=== PATIENT | male | born 1955 | race African-American/Black ===

== ENCOUNTER 2021-04-17 07:13 | Emergency (ER) | payer OTHER ==
[2021-04-17 07:57] VITALS: BP 120/79
[2021-04-17] MEDS ORDERED: KETOROLAC 30 MG/1 ML INJ IM ONE (09:17)
[2021-04-17] MEDS ORDERED: ONDANSETRON 4 MG ODT TAB PO ONE (09:17)
--- NOTE | 2021-04-17 09:25 | Emergency Department Report ---
ED Back Pain/Injury HPI - General Chief Complaint: Back Pain/Injury Stated Complaint: BACKPAIN Time Seen by Provider: 04/17/21 08:40 Source: patient Limitations: No Limitations - History of Present Illness Initial Comments: Is a pleasant 66-year-old male who presents to the emergency department chief complaint of left-sided flank pain that radiates around to the left lower quad rant. He has a history of nephrolithiasis but has never passed a kidney stone before. He reports associated nausea and vomiting. He denies any associated fever, chills, night sweats, headache, dizziness, blurry vision, chest pain, shortness of breath, weakness or any other associated symptoms. He denies any saddle anesthesia, urinary or bowel incontinence, urinary retention, back injury, recent heavy lifting he does report some associated constipation. - Related Data Previous Rx's Medication Instructions Recorded Last Taken Type Acetaminophen with Codeine 1 tab PO Q6HR #12 tab 04/17/21 Unknown Rx [Acetaminophen-Codeine #4 TAB] Ondansetron [Zofran Odt] 4 mg PO Q8HR #30 tab.rapdis 04/17/21 Unknown Rx Tamsulosin [Flomax] 0.4 mg PO QHS #7 cap 04/17/21 Unknown Rx Allergies Allergy/AdvReac Type Severity Reaction Status Date / Time No Known Allergies Allergy Unverified 04/17/21 07:56 ED Review of Systems ROS: Stated complaint: BACKPAIN Other details as noted in HPI Comment: All other systems reviewed and negative Constitutional: denies: chills, fever Eyes: denies: eye pain, eye discharge, vision change ENT: denies: ear pain, throat pain Respiratory: denies: cough, shortness of breath, wheezing Cardiovascular: denies: chest pain, palpitations Endocrine: no symptoms reported Gastrointestinal: as per HPI, abdominal pain, nausea, vomiting. denies: diarrhea Genitourinary: as per HPI. denies: urgency, dysuria Musculoskeletal: as per HPI, back pain. denies: joint swelling, arthralgia Skin: denies: rash, lesions Neurological: denies: headache, weakness, paresthesias Psychiatric: denies: anxiety, depression Hematological/Lymphatic: denies: easy bleeding, easy bruising ED Past Medical Hx - Past Medical History Previous Medical History?: No - Surgical History Past Surgical History?: No - Medications Home Medications: Home Medications Medication Instructions Recorded Confirmed Last Taken Type Acetaminophen with Codeine 1 tab PO Q6HR #12 tab 04/17/21 Unknown Rx [Acetaminophen-Codeine #4 TAB] Ondansetron [Zofran Odt] 4 mg PO Q8HR #30 tab.rapdis 04/17/21 Unknown Rx Tamsulosin [Flomax] 0.4 mg PO QHS #7 cap 04/17/21 Unknown Rx ED Physical Exam - General Limitations: No Limitations General appearance: alert, in no apparent distress - Head Head exam: Present: atraumatic, normocephalic - Eye Eye exam: Present: normal appearance, PERRL, EOMI Pupils: Present: normal accommodation - ENT ENT exam: Present: normal exam, normal orophraynx, mucous membranes moist - Neck Neck exam: Present: normal inspection, full ROM. Absent: tenderness, meningism us - Respiratory Respiratory exam: Present: normal lung sounds bilaterally. Absent: respiratory distress, wheezes, rales, rhonchi, stridor - Cardiovascular Cardiovascular Exam: Present: regular rate, normal rhythm, normal heart sounds. Absent: systolic murmur, diastolic murmur, rubs, gallop - GI/Abdominal GI/Abdominal exam: Present: soft, tenderness (Mild tenderness to the left lower quadrant, no rebound or guarding), normal bowel sounds. Absent: distended, guarding, rebound, pulsatile mass - Rectal Rectal exam: Present: deferred - Extremities Exam Extremities exam: Present: normal inspection, full ROM, normal capillary refill. Absent: tenderness, calf tenderness - Back Exam Back exam: Present: normal inspection, full ROM, CVA tenderness (L). Absent: CVA tenderness (R) - Neurological Exam Neurological exam: Present: alert, oriented X3 - Psychiatric Psychiatric exam: Present: normal affect, normal mood - Skin Skin exam: Present: warm, dry, intact, normal color. Absent: rash ED Course Vital Signs 04/17/21 07:56 Temperature 98.4 F Pulse Rate 84 Respiratory 18 Rate Blood Pressure 120/79 O2 Sat by Pulse 96 Oximetry - Reevaluation(s) Reevaluation #1: 04/17/21 11:12 CT confirmed a kidney stone in the left UVJ. Patient pain was controlled with IV Toradol. [place] much better was comfortable going home. He is tolerating p.o. fluids. ED Medical Decision Making - Lab Data Result diagrams: 04/17/21 09:36 04/17/21 09:36 - Radiology Data Radiology results: report reviewed CT ABDOMEN AND PELVIS WITHOUT CONTRAST INDICATION / CLINICAL INFORMATION: left sided flank pain, hematuria, hx of kidney stones. TECHNIQUE: Axial CT images were obtained through the abdomen and pelvis without IV contrast. All CT scans at this location are performed using CT dose reduction for ALARA by means of automated exposure control. COMPARISON: None available. FINDINGS: LOWER CHEST: No significant abnormality. LIVER: No significant abnormality. GALLBLADDER: No significant abnormality. BILE DUCTS: No significant abnormality. PANCREAS: No significant abnormality. SPLEEN: No significant abnormality. ADRENALS: No significant abnormality. RIGHT KIDNEY / URETER: No significant abnormality. LEFT KIDNEY / URETER: 4 mm stone at the left ureterovesical junction with mild left hydroureteronephrosis. Several nonobstructing left intrarenal stones measuring up to 8mm in the mid kidney. STOMACH / SMALL BOWEL: No significant abnormality. COLON: No significant abnormality. APPENDIX: No significant abnormality. PERITONEUM: No free fluid. No free air. No fluid collection. LYMPH NODES: No significant adenopathy. AORTA / ARTERIES: No significant abnormality. IVC / VEINS: No significant abnormality. URINARY BLADDER: Contracted. REPRODUCTIVE ORGANS: No significant abnormality. ADDITIONAL FINDINGS: None. SKELETAL SYSTEM: No significant abnormality. IMPRESSION: 1. 4 mm stone at the left ureterovesical junction with mild left hydr oureteronephrosis. 2. Left nephrolithiasis. Signer Name: Mark Cuba MD Signed: 04/17/2021 9:53 AM Workstation Name: [id number] Transcribed By: DT Dictated By: Kyle Cuba MD Electronically Authenticated By: Kyle Cuba MD Signed Date/Time: 04/17/21 0953 - Medical Decision Making CT confirmed kidney stone. Patient's pain was controlled. Tolerating p.o. fluids. We will send him home with pain medication, Flomax, nausea medication and urology follow-up. Recommend he return the [facility] any change or worsening symptoms. He verbalized understand the diagnosis, treatment plan and follow-up instructions all his questions were answered. No signs or symptoms of infection. - Differential Diagnosis Nephrolithiasis, pyelonephritis, diverticulitis Critical care attestation.: If time is entered above; I have spent that time in minutes in the direct care of this critically ill patient, excluding procedure time. ED Disposition Clinical Impression: Ureteral colic Disposition: 01 HOME / SELF CARE / HOMELESS Is pt being admited?: No Condition: Stable Instructions: Renal Colic, Exbl-pg-Hosm Prescriptions: Tamsulosin [Flomax] 0.4 mg PO QHS #7 cap Acetaminophen with Codeine [Acetaminophen-Codeine #4 TAB] 1 tab PO Q6HR #12 tab Ondansetron [Zofran Odt] 4 mg PO Q8HR #30 tab.rapdis Referrals: [facility] [Other] - 3-5 Days SHEN BARBER MD [Staff Physician] - 3-5 Days Time of Disposition: 11:14
[2021-04-17 09:52] LABS: Basophils % (Auto) 0.3 % (0.0-1.8); Eosinophils % (Auto) 0.2 % (0.0-4.3); Hematocrit 41.5 % (35.5-45.6); Lymphocytes # (Auto) 1.1 K/mm3 (1.2-5.4); Mean Corpuscular HGB Conc 31 % (32-34); Mean Corpuscular Volume 71 fl (84-94); Monocytes % (Auto) 7.6 % (0.0-7.3); Platelet Count 165 K/mm3 (140-440); Red Blood Count 5.85 M/mm3 (3.65-5.03); Red Cell Distribution Width 15.3 % (13.2-15.2)
--- NOTE | 2021-04-17 09:57 | Cat Scan Report ---
CT ABDOMEN AND PELVIS WITHOUT CONTRAST INDICATION / CLINICAL INFORMATION: left sided flank pain, hematuria, hx of kidney stones. TECHNIQUE: Axial CT images were obtained through the abdomen and pelvis without IV contrast. All CT scans at this location are performed using CT dose reduction for ALARA by means of automated exposure control. COMPARISON: None available. FINDINGS: LOWER CHEST: No significant abnormality. LIVER: No significant abnormality. GALLBLADDER: No significant abnormality. BILE DUCTS: No significant abnormality. PANCREAS: No significant abnormality. SPLEEN: No significant abnormality. ADRENALS: No significant abnormality. RIGHT KIDNEY / URETER: No significant abnormality. LEFT KIDNEY / URETER: 4 mm stone at the left ureterovesical junction with mild left hydroureteronephr osis. Several nonobstructing left intrarenal stones measuring up to 8mm in the mid kidney. STOMACH / SMALL BOWEL: No significant abnormality. COLON: No significant abnormality. APPENDIX: No significant abnormality. PERITONEUM: No free fluid. No free air. No fluid collection. LYMPH NODES: No significant adenopathy. AORTA / ARTERIES: No significant abnormality. IVC / VEINS: No significant abnormality. URINARY BLADDER: Contracted. REPRODUCTIVE ORGANS: No significant abnormality. ADDITIONAL FINDINGS: None. SKELETAL SYSTEM: No significant abnormality. IMPRESSION: 1. 4 mm stone at the left ureterovesical junction with mild left hydroureteronephrosis. 2. Left nephrolithiasis. Signer Name: Mark Cuba MD Signed: 04/17/2021 9:53 AM Workstation Name: [id number]
[2021-04-17 10:10] LABS: Alanine Aminotransferase 19 units/L (7-56); Albumin 4.4 g/dL (3.9-5); BUN/Creatinine Ratio 17; Blood Urea Nitrogen 20 mg/dL (9-20); Calcium 9.3 mg/dL (8.4-10.2); Hemolysis Index 14
[2021-04-17 10:45] LABS: Bilirubin,Urine NEG (Negative); Blood,Urine NEG (Negative); Calcium Oxalate Crystals,Urine 1+; Color,Urine Yellow (Yellow); Mucus,Urine 1+ /HPF; Protein,Urine <15 mg/dL mg/dL (Negative); Urobilinogen,Urine < 2.0 mg/dL (<2.0)
== END 2021-04-17 11:32 | disposition home or self-care (01) ==
LOC: ED 07:13
DX: N23 Unspecified renal colic (principal)
CPT/HCPCS: 36415; 74176; 80053; 81001; 85025; 96372; 99284; J1885; Q0162